=== PATIENT | male | born 1970 | race African-American/Black ===

== ENCOUNTER 2021-07-11 04:00 | Inpatient (IN) | payer SELFPAY ==
[~2021-07-11] VITALS: Ht 177.8 cm; Wt 113.4 kg
[2021-07-11] MEDS ORDERED: ASPIRIN 81MG TABLET PO ONE (04:45)
[2021-07-11 04:47] LABS: BASOPHILS % 0.6 % (0.0-2.0); EOSINOPHILS % 2.3 % (0.0-5.0); HEMATOCRIT. 39.5 % (42.0-52.0); HEMOGLOBIN. 13.6 g/dL (14.0-18.0); LYMPHOCYTES % 26.6 % (20.0-50.0); MEAN CORPUSCULAR HEMOGLOBIN 32.2 pg (28.0-32.0); MEAN CORPUSCULAR VOLUME 93.4 fL (80.0-94.0); MEAN PLATELET VOLUME 9.3 fl (7.4-10.4); MONOCYTES % 8.7 % (2.0-8.0); NEUTROPHILS % 61.8 % (40.0-76.0); PLATELET 176 x1000/uL (130-400); RED BLOOD CELL COUNT 4.23 mill/uL (4.7-6.1); RED CELL DISTRIBUTION WIDTH 12.6 % (11.6-14.6)
[2021-07-11 04:59] LABS: CHLORIDE 109 mEq/L (98-107)
[2021-07-11] MEDS ORDERED: SODIUM CHLORIDE 0.9% 1,000 ML IV ONE (05:15)
[2021-07-11] MEDS ORDERED: HYDRALAZINE 20MG/ML VIAL IV ONE (05:15)
[2021-07-11] MEDS ORDERED: POTASSIUM CHLORIDE 20MEQ TABLET SR PO ONE (05:15)
[2021-07-11] MEDS ORDERED: KETOROLAC 15MG/ML VIAL IV PRN (10:30)
[2021-07-11] MEDS ORDERED: NITROGLYCERIN 0.4MG TABLET SL SL PRN (10:30)
[2021-07-11] MEDS ORDERED: GUAIFENESIN 200MG/10ML SUGAR FREE UDC PO PRN (10:30)
[2021-07-11] MEDS ORDERED: ONDANSETRON HCL 4MG/2ML INJ IV PRN (10:30)
[2021-07-11] MEDS ORDERED: IPRATROPIUM/ALBUTEROL 0.5-3(2.5)MG/3ML NEB NEB PRN (10:30)
[2021-07-11] MEDS ORDERED: ACETAMINOPHEN 325MG TABLET PO PRN ×2 (10:30)
[2021-07-11] MEDS ORDERED: DOCUSATE SODIUM 100MG CAPSULE PO PRN (10:30)
[2021-07-11] MEDS ORDERED: CLONIDINE 0.1MG TABLET PO PRN (10:30)
[2021-07-11] MEDS ORDERED: ZOLPIDEM TARTRATE 5MG TABLET PO PRN (10:30)
[2021-07-11] MEDS ORDERED: MAGNESIUM/ALUMINUM HYDROXIDE/SIMETHICONE 30ML UDC PO PRN (10:30)
[2021-07-11] MEDS: AMLODIPINE 10MG TABLET PO SCH (10:52)
[2021-07-11] MEDS: FAMOTIDINE 20MG TABLET PO SCH ×2 (10:53→21:13)
[2021-07-11] MEDS: ENOXAPARIN 30MG/0.3ML SYR SUBCUT SCH ×2 (10:53→21:14)
[2021-07-11] MEDS ORDERED: KCL 20MEQ/100ML PREMIX 100 ML IV NR (11:00)
[2021-07-11 11:12] LABS: FOLIC ACID (FOLATE) SERUM 6.7 ng/mL (>5.38)
[2021-07-11 11:33] LABS: ETHANOL BLOOD < 10 mg/dL
[2021-07-11 13:45] VITALS: BP 145/85
[2021-07-11 16:00] VITALS: BP 184/88
[2021-07-11] MEDS ORDERED: INFLUENZA VACCINE 05/PF 0.5 ML SYRINGE IM ONE (16:00)
[2021-07-11 20:00] VITALS: BP 148/97
[2021-07-11 21:00] LABS: CREATINE KINASE MB FRACTION 1.6 ng/mL (0.5-3.6)
[2021-07-11] MEDS: LISINOPRIL 20MG TABLET PO SCH (21:13)
[2021-07-12] VITALS: BP 135/99
[2021-07-12 04:00] VITALS: BP 137/104
[2021-07-12 06:56] LABS: BASOPHILS % 0.4 % (0.0-2.0); EOSINOPHILS % 1.9 % (0.0-5.0); HEMATOCRIT. 44.6 % (42.0-52.0); HEMOGLOBIN. 14.8 g/dL (14.0-18.0); LYMPHOCYTES % 30.8 % (20.0-50.0); MEAN CORPUSCULAR HEMOGLOBIN 31.3 pg (28.0-32.0); MEAN CORPUSCULAR VOLUME 94.5 fL (80.0-94.0); MONOCYTES % 8.5 % (2.0-8.0); NEUTROPHILS % 58.4 % (40.0-76.0); PLATELET 180 x1000/uL (130-400); RED BLOOD CELL COUNT 4.72 mill/uL (4.7-6.1); RED CELL DISTRIBUTION WIDTH 12.8 % (11.6-14.6)
[2021-07-12 07:18] LABS: CHLORIDE 108 mEq/L (98-107)
[2021-07-12 07:29] LABS: CREATINE KINASE 161 IU/L (39-308)
[2021-07-12 07:30] LABS: PHOSPHORUS 2.1 mg/dL (2.5-4.9)
[2021-07-12 07:39] LABS: CREATINE KINASE MB FRACTION 1.3 ng/mL (0.5-3.6)
[2021-07-12 08:00] VITALS: BP 152/88
[2021-07-12] MEDS: LISINOPRIL 20MG TABLET PO SCH (08:42)
[2021-07-12] MEDS: AMLODIPINE 10MG TABLET PO SCH (08:42)
[2021-07-12] MEDS: FAMOTIDINE 20MG TABLET PO SCH (08:42)
[2021-07-12] MEDS: ENOXAPARIN 30MG/0.3ML SYR SUBCUT SCH (08:43)
[2021-07-12] MEDS ORDERED: ASPIRIN 325MG EC TABLET PO SCH (09:00)
[2021-07-12] MEDS ORDERED: POTASSIUM-SODIUM PHOSPHATE POWDER PACKET PO NR (10:45)
[2021-07-12] MEDS ORDERED: POTASSIUM CHLORIDE 20MEQ/PACKET PO NR (10:45)
[2021-07-12 11:55] VITALS: BP 159/72
[2021-07-12 12:00] VITALS: BP 149/87
[2021-07-12 14:04] LABS: *BARBITURATES SCREEN URINE NEGATIVE (NEGATIVE)
[2021-07-12 14:05] LABS: *AMPHETAMINES SCREEN URINE NEGATIVE (NEGATIVE); *BENZODIAZEPINES SCREEN URINE NEGATIVE (NEGATIVE); *COCAINE SCREEN URINE NEGATIVE (NEGATIVE); CANNABINOID URINE SCREEN PRESUMTIVE POSITIVE (NEGATIVE); METHADONE URINE SCREEN NEGATIVE (NEGATIVE); OPIATES URINE SCREEN NEGATIVE (NEGATIVE); PHENCYCLIDINE URINE SCREEN NEGATIVE (NEGATIVE)
== END 2021-07-12 13:45 | disposition home or self-care (01) | DRG 203 ==
LOC: ER 04:00 → 8WST 05:35 → EDBEDREQTM 05:40 → EDBEDREQ 05:40 → ENRESERV 12:32
PROVIDERS: ADMIT Internal Medicine; ATTEND Internal Medicine
DX: M94.0 Chondrocostal junction syndrome [Tietze] (principal); N17.0 Acute kidney failure with tubular necrosis; J45.909 Unspecified asthma, uncomplicated; I16.1 Hypertensive emergency; Z88.0 Allergy status to penicillin
CPT/HCPCS: 36415; 71045; 80053; 80061; 80305; 80320; 82550; 82553; 82607; 82746; 83036; 83540; 83550; 83735; 83880; 84100; 84484; 85025; 93005; 93970; 99285; J0360; J1650; J3480; J7030; G0480